=== PATIENT | female | born 1965 | race Hispanic/Latino ===

== ENCOUNTER → 2018-12-01 | Day surgery (SDC) | payer OTHER ==
[~2018-12-01] MED LIST: FENTANYL CITRATE/PF 100MCG/2 ML INJ ONE; FISH OIL 1,0001 EAC2 PO; GLUCAGON FOR INJ 1 MG VIAL ONE; HYOSCYAMINE 0.125 MG TAB ONE; LOSARTAN POTASS25 MG PO; METAMUCIL FIBE3.4 GM PO; MIDAZOLAM HCL 2 MG/2 ML VIAL ONE; MULTI-VITAMIN1 EACH PO; PROPOFOL IV EMULSION 10 MG/ML 50 ML VIAL ONE; VIT B12 PO
--- OUTSIDE RECORDS SUMMARY | 2018-12-01 11:59 | XMS REPORT | Summary of Care ---
Author Author Mehran Montez, Avery Organization Unknown Address Unknown Phone Unavailable Care Team Providers Care Marketing Strategy Manager Name Role Phone BUDDY CARRASCO N.P. Unavailable Unavailable BYRON N.PChristin, DARREN Unavailable Unavailable RIP N.P., NORMA Unavailable Unavailable JUAN N.PChristin, ENZO Unavailable Unavailable Mehran Montez, Avery Unavailable Unavailable ANKUR GALARZA MD Unavailable Unavailable Unavailable Unavailable Functional Status Name Dates Details Functional status health issues are not documented Status: Name Dates Details Cognitive status health issues are not documented Status: Problems Name Dates Details Endometrial cancer (182.0, C54.1) Status: Active Postoperative pain (338.18, G89.18) Status: Active Encounter for chemotherapy management (V58.11, Z51.11) Status: Active Dermatitis (692.9, L30.9) Status: Active Dermatitis, contact (692.9, L25.9) Status: Active Skin tenderness (782.0, R20.8) Status: Active Shingles (053.9, B02.9) Status: Active Ovarian cancer (183.0, C56.9) Status: Active Allergy to imaging contrast media (V15.08, Z91.041) Status: Active Encounter for screening colonoscopy (V76.51, Z12.11) Status: Active Medications Name Dates Details Losartan Potassium-HCTZ 50-12.5 MG Oral Tablet Active LORazepam 1 MG Oral Tablet TAKE 1 TABLET TWICE DAILY. * Refills: 0 Active Ibuprofen 600 MG Oral Tablet * Refills: 0 Active Acetaminophen CAPS * Refills: 0 Active traMADol HCl - 50 MG Oral Tablet TAKE 1 TABLET EVERY 6 HOURS PRN pain * Quantity: 15 Refills: 0 BYRON N.P., DARREN * Start : 31-Jan-2018 Active Ondansetron HCl - 8 MG Oral Tablet TAKE 1 TABLET EVERY 8 HOURS NEEDED FOR BREAKTHROUGH NAUSEA AND/OR VOMITING. * Quantity: 30 Refills: 1 LUNA N.P., BUDDY * Start : 17-Feb-2018 Active Prochlorperazine Maleate 10 MG Oral Tablet TAKE 1 TABLET EVERY 4 TO 6 HOURS NEEDED FOR NAUSEA. * Quantity: 30 Refills: 0 JUAN N.P.ENZO * Start : 17-Feb-2018 Active Clobetasol Propionate 0.05 % External Cream APPLY SPARINGLY TO AFFECTED AREA(S) TWICE DAILY * Quantity: 1 Refills: 0 JUAN N.P.ENZO * Start : 03-Mar-2018 Active Cephalexin 500 MG Oral Capsule TAKE 1 CAPSULE 4 TIMES DAILY. * Quantity: 28 Refills: 0 JUAN N.P., ENZO * Start : 03-Mar-2018 Active Lidocaine 4 % External Cream apply 1 inch amount prior to port a cath needle assess as needed * Quantity: 1 Refills: 0 JUAN N.P.ENZO * Start : 18-Mar-2018 Active 15 GM Tube valACYclovir HCl - 1 GM Oral Tablet TAKE 1 TABLET 3 TIMES DAILY. * Quantity: 21 Refills: 0 ERWIN N.P., NORMA * Start : 28-Apr-2018 Active predniSONE 50 MG Oral Tablet TAKE 1 TABLET Once Prednisone 50 mg by mouth at 13 hours, 7 hours, and 1 hour be fore contrast media injection * Quantity: 3 Refills: 0 ERWIN N.P., NORMA * Start : 19-Jun-2018 Active diphenhydrAMINE HCl - 50 MG Oral Capsule TAKE 1 CAPSULE Once Take 1 hour before contrast medium. * Quantity: 1 Refills: 0 ERWIN N.P., NORMA * Start : 19-Jun-2018 Active Allergies and Adverse Reactions Name Dates Details No Known Allergies (Allergy) Status: Active Past Medical History Name Dates Details History of No significant past medical history Status: Resolved Procedures Procedure Dates Details Port Flush Date: 29-Sep-2018 Port Flush Date: 21-Nov-2018 [QL] CA 125 Date: 21-Nov-2018 History of Laparoscopic hysterectomy Completed History of Appendectomy Completed History of Cholecystectomy Completed Immunization Name Dates Details Immunizations not documented Family History Name Dates Details Family history of malignant neoplasm of uterus (V16.49, Z80.49) Status: Active Name Dates Details Family history of diabetes mellitus (V18.0, Z83.3) Status: Active Family history of hypertension (V17.49, Z82.49) Status: Active Name Dates Details Family history of endometriosis (V19.8, Z84.2) Status: Active Name Dates Details Family history of Hodgkin's lymphoma (V16.7, Z80.7) Status: Active Social History Name Dates Details - Status: Name Dates Details Never smoker Vital Signs Date Test Result Details No Known Vitals to report Results Date Description Value Details Results not documented Plan of Care Name Dates Details Planned Observations Planned Goals not documented Planned Encounters Appointment; OCCUPATIONAL HEALTH NURSE SUPERVISOR-ONCOLOGY, PROVIDER On: 01-Dec-2018 8:30 Interventions Provided Labs/Procedures/Imaging* [[facility]] CA 125; To Be Done: 21 Nov 2018 * Port Flush; To Be Done: 21 Nov 2018 Instructions Name Dates Details Instructions not documented Encounters Appointment; ANKUR GALARZA M.D. Encounter Diagnosis: Problem not documented On: 30-Dec-2017 10:00 Appointment; ANKUR GALARZA M.D. Encounter Diagnosis: Problem not documented On: 13-Jan-2018 10:20 Appointment; ANKUR GALARZA M.D. Encounter Diagnosis: Problem not documented On: 28-Jan-2018 12:00 Appointment; RYAN MUÑIZ M.D. Encounter Diagnosis: Problem not documented On: 12-Feb-2018 10:40 Appointment; ANKUR GALARZA M.D. Encounter Diagnosis: Problem not documented On: 17-Feb-2018 8:40 Appointment; ANKUR GALARZA M.D. Encounter Diagnosis: Problem not documented On: 03-Mar-2018 10:40 Appointment; ANKUR GALARZA M.D. Encounter Diagnosis: Problem not documented On: 17-Mar-2018 13:40 Appointment; ANKUR GALARZA M.D. Encounter Diagnosis: Problem not documented On: 07-Apr-2018 8:20 Appointment; ANKUR GALARZA M.D. Encounter Diagnosis: Problem not documented On: 28-Apr-2018 8:40 Appointment; ANKUR GALARZA M.D. Encounter Diagnosis: Problem not documented On: 19-May-2018 8:20 Appointment; OCCUPATIONAL HEALTH NURSE SUPERVISOR-ONCOLOGY, PROVIDER Encounter Diagnosis: Problem not documented On: 09-Jun-2018 8:15 Appointment; ANKUR GALARZA M.D. Encounter Diagnosis: Problem not documented On: 09-Jun-2018 8:20 Appointment; ANKUR GALARZA M.D. Encounter Diagnosis: Problem not documented On: 30-Jun-2018 9:20 Appointment; ANKUR GALARZA M.D. Encounter Diagnosis: Problem not documented On: 29-Sep-2018 8:40
--- OUTSIDE RECORDS SUMMARY | 2018-12-01 11:59 | XMS REPORT ---
Author Author [facility] Address Unknown Phone Unavailable Care Team Providers Care Boiler Operator Helper Name Role Phone Unavailable Unavailable Problems This patient has no known problems. Allergies, Adverse Reactions, Alerts This patient has no known allergies or adverse reactions. Medications This patient has no known medications. Encounters Start Date/Time End Date/Time Encounter Type Admission Type Attending [facility] Care Department Encounter ID 2018-11-04 16:02:48 Outpatient [id number] 2018-09-29 09:34:00 2018-09-29 09:34:00 Outpatient [id number] 2018-09-27 07:21:00 2018-09-27 07:21:00 Outpatient [id number]
[2018-12-01 16:45] VITALS: BP 122/73
[2018-12-01 17:30] LABS: WBC,FECAL (FECAL LACTOFERRIN) NEGATIVE (NEGATIVE)
[2018-12-02 12:30] LABS: C DIFFICILE TOXIN A&B AMP PROB NEGATIVE (NEGATIVE)
--- NOTE | 2018-12-10 13:38 | Operative Report ---
DATE OF PROCEDURE: 12/01/2018 SURGEON: Serafin Richardson MD PROCEDURE: Esophagogastroduodenoscopy and colonoscopy. INDICATIONS FOR EGD: History of dark stools. INDICATIONS FOR COLONOSCOPY: Colorectal cancer screening, history of intermittent diarrhea. MEDICATIONS: The patient was done under MAC, please see anesthesiologist's note. PROCEDURE IN DETAIL: With the patient in left lateral decubitus position, flexible fiberoptic Olympus gastroscope was introduced into the esophagus under direct visualization without any difficulty. There was some patchy erythema noted in distal esophagus. The scope was then advanced with ease into the stomach. Mucosa overlying the antrum revealed some patchy areas of erythema and low-grade to moderate edema and biopsies were obtained, sent to stain for H pylori. Several hyperplastic-appearing minute polyps were noted in the body of the stomach and somewhat partially excised with the cold biopsy forceps. The pylorus was of normal contour and shape, it was intubated with ease and the scope was advanced all the way to the second portion of the duodenum. Biopsies were obtained from the second portion as well as from the duodenal bulb to rule out sprue. The scope was then withdrawn back into the stomach and retroflexed and mucosa overlying the fundus and cardia appeared to be within normal limits. The scope was then straightened out, it was subsequently withdrawn. The patient tolerated the procedure well. IMPRESSION: 1. Distal esophagitis, mild. 2. Gastritis, biopsied. Biopsies sent to stain for Helicobacter pylori. 3. Gastric polyps, several, hyperplastic appearing, body of stomach, some partially excised with the cold biopsy forceps. 4. Rule out sprue. PLAN: Follow up histology. Initiate Protonix 40 mg one p.o. a.c. q.a.m. PROCEDURE IN DETAIL: The patient was then turned around. After adequate lubrication of the anal canal, a flexible fiberoptic Olympus colonoscope was inserted into the rectum with ease and advanced all the way to the cecum. Mucosa overlying the cecum appeared to be within normal limits. The ileocecal valve was intubated and the scope was advanced into the terminal ileum. Biopsies were obtained from the terminal ileum. The scope was then withdrawn back into the colon. It was then withdrawn slowly. Mucosa overlying the ascending and the transverse colon appeared to be within normal limits. There were some patchy mild inflammatory changes noted in the left colon and rectum and random biopsies were obtained. The scope was then retroflexed into the distal rectum. Small internal hemorrhoids were noted, none of which was actively bleeding. The scope was then straightened out, it was subsequently withdrawn after securing an adequate stool specimen that was sent for the appropriate stool studies. The patient tolerated the procedure well. IMPRESSION: 1. Mild patchy left-sided colitis. 2. Small internal hemorrhoids, none actively bleeding. PLAN: Follow up histology. Follow up stool studies. Initiate Bentyl 10 mg one p.o. t.i.d. and VSL#3 one p.o. daily. The patient might benefit from a followup colonoscopy in 5 to 10 years. Serafin Richardson MD [facility] [place] [place] /[id number] cc: Marissa Nunez MD
== END | disposition home or self-care (01) ==
LOC: OR 11:52
PROVIDERS: ATTEND Internal Medicine Gastroenterology
DX: K51.50 Left sided colitis without complications (principal); K29.70 Gastritis, unspecified, without bleeding; K20.9 Esophagitis, unspecified; K64.8 Other hemorrhoids; C54.1 Malignant neoplasm of endometrium; I10 Essential (primary) hypertension; R00.2 Palpitations; Z79.899 Other long term (current) drug therapy; Z01.810 Encounter for preprocedural cardiovascular examination; Z68.31 Body mass index [BMI] 31.0-31.9, adult; Z85.43 Personal history of malignant neoplasm of ovary; Z85.42 Personal history of malignant neoplasm of other parts of uterus
CPT/HCPCS: 43239; 45380; 83630; 83993; 87045; 87177; 87328; 87493; 93005; J1610; J2250; J2704; J3010

== ENCOUNTER → 2020-03-04 | Outpatient (CLI) | payer OTHER ==
[~2020-03-04] MED LIST changes: -FENTANYL CITRATE/PF 100MCG/2 ML INJ ONE; -GLUCAGON FOR INJ 1 MG VIAL ONE; -HYOSCYAMINE 0.125 MG TAB ONE; -MIDAZOLAM HCL 2 MG/2 ML VIAL ONE; -PROPOFOL IV EMULSION 10 MG/ML 50 ML VIAL ONE
--- NOTE | 2020-03-04 17:42 | Diagnostic Imaging Report ---
EXAM: CT Abdomen and Pelvis WITHOUT contrast INDICATION: CALCULUS OF KIDNEY COMPARISON: None. TECHNIQUE: Abdomen and pelvis were scanned utilizing a multidetector helical scanner from the lung base to the pubic symphysis without administration of IV contrast. Absence of intravenous contrast decreases sensitivity for detection of focal lesions and vascular pathology. Coronal and sagittal reformations were obtained. Routine protocol was performed. IV CONTRAST: None ORAL CONTRAST: None COMPLICATIONS: None RADIATION DOSE: Total DLP: 557.07 mGy*cm Estimated effective dose: (DLP x 0.015 x size factor) mSv CTDIvol has been reviewed. It is below the limits set by the Radiation Protocol Committee (RPC). Dose modulation, iterative reconstruction, and/or weight based adjustment of the mA/kV was utilized to reduce the radiation dose to as low as reasonably achievable. FINDINGS: LINES and TUBES: None. LOWER THORAX: Unremarkable HEPATOBILIARY: Enlarged measuring up to 20 cm No focal hepatic lesions. No biliary ductal dilation. GALLBLADDER: There are cholecystectomy clips. SPLEEN: No splenomegaly. PANCREAS: No focal masses or ductal dilatation. ADRENALS: No adrenal nodules KIDNEYS/URETERS: No hydronephrosis. No cystic or solid mass lesions. No stones. GI TRACT: No abnormal distention, wall thickening, or evidence of bowel obstruction. Appendix is not clearly identified. There is however no fat stranding or adenopathy in the right lower quadrant to suggest appendicitis. PELVIC ORGANS/BLADDER: The nonopacified urinary bladder is decompressed and not well assessed. However, no gross abnormality. There pelvic phleboliths. No large pelvic mass, free fluid or free air. LYMPH NODES: No lymphadenopathy. VESSELS: Unremarkable. PERITONEUM / RETROPERITONEUM: No free air or fluid. There are surgical clips in the right lower quadrant. BONES: There are degenerative changes in the spine. SOFT TISSUES: Unremarkable. IMPRESSION: 1. No acute abdominopelvic abnormality identified, specifically no obstructive renal or ureteral stones. 2. Hepatomegaly. Signed by: Cee Verma MD on 03/04/2020 5:38 PM
== END ==
LOC: CT 15:56
PROVIDERS: ATTEND Urology
DX: N20.0 Calculus of kidney (principal)
CPT/HCPCS: 74176